=== PATIENT | female | born 2000 | race American Indian/Alaskan Native ===

== ENCOUNTER 2021-05-22 14:26 | Emergency (ER) | payer OTHER ==
[2021-05-22 16:06] VITALS: BP 121/63
--- NOTE | 2021-05-22 16:09 | Emergency Department Report ---
ED Female HPI - General Chief complaint: Abdominal Pain Stated complaint: LOWER AB PAIN Time Seen by Provider: 05/22/21 16:06 Source: patient Mode of arrival: Ambulatory Limitations: No Limitations - History of Present Illness Initial comments: pt is a 20-year-old female presents emergency room complaints of lower abdominal cramping that began 4 days ago. She states that the cramping comes and goes. She has no pain or cramping currently. She states that she is also been having white vaginal discharge. States that she has been sexually active without protection and is concerned for STDs. She denies any fever, nausea, vomiting, diarrhea, dysuria, hematuria, vaginal bleeding, vaginal itching, vaginal burning, back pain. No past medical history. No allergies medications. Last menstrual cycle 04/15/2021, she does not know if she is has not taken a test. - Related Data Previous Rx's Medication Instructions Recorded Last Taken Type Doxycycline Hyclate [Doxycycline 100 mg PO BID 7 Days #14 tab 05/22/21 Unknown Rx Hyclate TAB] metroNIDAZOLE [Flagyl] 500 mg PO BID 7 Days #14 tab 05/22/21 Unknown Rx Allergies Allergy/AdvReac Type Severity Reaction Status Date / Time No Known Allergies Allergy Unverified 05/22/21 16:03 ED Review of Systems ROS: Stated complaint: LOWER AB PAIN Other details as noted in HPI Comment: All other systems reviewed and negative ED Past Medical Hx - Past Medical History Previous Medical History?: No - Medications Home Medications: Home Medications Medication Instructions Recorded Confirmed Last Taken Type Doxycycline Hyclate [Doxycycline 100 mg PO BID 7 Days #14 tab 05/22/21 Unknown Rx Hyclate TAB] metroNIDAZOLE [Flagyl] 500 mg PO BID 7 Days #14 tab 05/22/21 Unknown Rx ED Physical Exam - General Limitations: No Limitations General appearance: alert, in no apparent distress - Head Head exam: Present: atraumatic, normocephalic - Eye Eye exam: Present: normal appearance - ENT ENT exam: Present: mucous membranes moist - Respiratory Respiratory exam: Present: normal lung sounds bilaterally. Absent: respiratory distress, wheezes, rales, rhonchi, stridor, chest wall tenderness, accessory muscle use, decreased breath sounds, prolonged expiratory - Cardiovascular Cardiovascular Exam: Present: regular rate, normal rhythm, normal heart sounds. Absent: systolic murmur, diastolic murmur, rubs, gallop - GI/Abdominal GI/Abdominal exam: Present: soft, normal bowel sounds. Absent: distended, tenderness, guarding, rebound, rigid - Neurological Exam Neurological exam: Present: alert, oriented X3 - Psychiatric Psychiatric exam: Present: normal affect, normal mood - Skin Skin exam: Present: warm, dry, intact ED Course Vital Signs 05/22/21 16:04 Temperature 98.2 F Pulse Rate 73 Respiratory 18 Rate Blood Pressure 121/63 [Right] O2 Sat by Pulse 100 Oximetry ED Medical Decision Making - Medical Decision Making pt is a 20-year-old female presents emergency room complaints of lower abdominal cramping that began 4 days ago. She states that the cramping comes and goes. She has no pain or cramping currently. She states that she is also been having white vaginal discharge. States that she has been sexually active without protection and is concerned for STDs. She denies any fever, nausea, vomiting, diarrhea, dysuria, hematuria, vaginal bleeding, vaginal itching, vaginal burning, back pain. No past medical history. No allergies medications. Last menstrual cycle 04/15/2021, she does not know if she is has not taken a test. Vitals are normal. No abdominal tenderness on exam, no guarding, no rebound, no rigidity, normal bowel sounds, no peritoneal signs. UA shows white blood cells and moderate leukocyte esterase, no nitrites. Urine is negative. Given that patient has had unprotected intercourse and has discharge with bacteria present in the urine, will cover patient for STDs. Patient states that she will make an appointment with the clinic in order to receive a full STD panel. Patient given ceftriaxone IM while in the emergency department. Patient given prescription for medications. Do not suspect PID at this time, she has no abdominal tenderness on exam, no fever, no vomiting, she is nontoxic-appearing and very well-appearing on exam. advised patient Please take medication as prescribed to completion. Please follow-up with health department or clinic in order to have a full STD panel. Please have any partner tested and treated as well. Avoid sexual intercourse. Return to emergency room for any new or worsening symptoms. Critical care attestation.: If time is entered above; I have spent that time in minutes in the direct care of this critically ill patient, excluding procedure time. ED Disposition Clinical Impression: Abdominal cramping, Vaginal discharge, Concern about STD in female without diagnosis, Bacteria in urine Disposition: 01 HOME / SELF CARE / HOMELESS Is pt being admited?: No Does the pt Need Aspirin: No Condition: Stable Instructions: Vaginitis, Abdominal Pain (ED) Additional Instructions: Please take medication as prescribed to completion. Please follow-up with health department or clinic in order to have a full STD panel. Please have any partner tested and treated as well. Avoid sexual intercourse. Return to emergency room for any new or worsening symptoms. Prescriptions: Doxycycline Hyclate [Doxycycline Hyclate TAB] 100 mg PO BID 7 Days #14 tab metroNIDAZOLE [Flagyl] 500 mg PO BID 7 Days #14 tab Referrals: WILLIAN WAGONER MD [Staff Physician] - 3-5 Days [facility] [Provider Group] - 3-5 Days [facility] [Outside] - 3-5 Days Time of Disposition: 17:07 Print Language: KHMER
[2021-05-22 16:52] LABS: Bilirubin,Urine NEG (Negative); Blood,Urine SM (Negative); Color,Urine Yellow (Yellow); Mucus,Urine FEW /HPF; Protein,Urine <15 mg/dL mg/dL (Negative); Urobilinogen,Urine < 2.0 mg/dL (<2.0)
[2021-05-22 17:04] LABS: HCG Qualitative,Urine Negative (Negative)
[2021-05-22] MEDS ORDERED: LIDOCAINE-MPF (1%) 10 MG/1 ML VIAL 5 ML INFILTRATI ONE (17:06)
== END 2021-05-22 17:20 | disposition home or self-care (01) ==
LOC: ED 14:26
DX: N89.8 Other specified noninflammatory disorders of vagina (principal); Z20.2 Contact with and (suspected) exposure to infections with a predominantly sexual mode of transmission; R82.71 Bacteriuria; Z79.899 Other long term (current) drug therapy
CPT/HCPCS: 81001; 81025; 87086; 96372; 99283; J0696